=== PATIENT | male | born 1995 | race Caucasian/White ===

== ENCOUNTER 2016-12-28 13:42 | Emergency (ER) | payer OTHER ==
[~2016-12-28] VITALS: Ht 185.4 cm; Wt 77.8 kg
[2016-12-28 13:44] VITALS: TEMP 36.4; Ht 185.4 cm; Wt 77.8 kg
[2016-12-28 14:17] LABS: BASO % 0.2 %; BASO ABS # 0.02 K/uL (0-0.2); COMPLETE YES; EOS % 3.5 %; HEMATOCRIT 51.3 % (42-52); IG% 0.2 %; LYMPH % 20.9 %; LYMPH ABS # 1.98 K/uL (1.2-3.4); MEAN CELL VOLUME 88.6 fL (80-100); MEAN CORPUSCULAR HEMOGLOBIN 30.2 pg (25-34); MEAN CORPUSCULAR HGB CONC 34.1 g/dl (32-36); MEAN PLATELET VOLUME 9.9 fL (7.4-10.4); MONO % 8.8 %; NEUT % 66.4 %; PLATELET COUNT 336 K/uL (130-400); RED BLOOD COUNT 5.79 M/uL (4.7-6.1); WHITE BLOOD COUNT 9.48 K/uL (4.8-10.8)
[2016-12-28] MEDS ORDERED: SODIUM CHLORIDE 0.9% 500ML 500 ML IV STA (14:34)
[2016-12-28] MEDS ORDERED: SODIUM CHLORIDE 0.9% 1000ML 1,000 ML IV STA (14:34)
[2016-12-28] MEDS ORDERED: ONDANSETRON INJ 2 MG/ML 2 ML VIAL IV STA (14:34)
[2016-12-28 14:37] LABS: BUN/CREATININE RATIO 11.8 (10-20); CALCIUM 10.1 mg/dl (8.5-10.1); CREATININE 1.1 mg/dl (0.60-1.40)
--- NOTE | 2016-12-28 14:37 | EMERGENCY ROOM VISIT NOTE ---
History Report prepared by Mervin: Justo Arthur Under the Supervision of: Dr. Agustin Koehler M.D. First contact with patient: 14:26 Chief Complaint: ABDOMINAL PAIN Stated Complaint: RIGHT SIDE ABDOMINAL PAIN Nursing Triage Summary: Abdominal pain x1 day, dry heaves. More right sided abd pain History of Present Illness The patient is a 21 year old male who presents to the Emergency Room with complaints of waxing and waning abdominal pain that started around 1999 last night. He says that the pain is not localized in one area. The patient states that he only ate breakfast yesterday, and was hungry with abdominal pain last night, so he got something to eat. However, after he ate, the pain became much worse. He was about to come here last night, but the pain eased off a bit around midnight. The patient also notes that he was dry heaving with chills last night. The patient woke up this morning around 0700 with worsened pain. He says that he took milk of magnesia around 1100 and then had a bowel movement. His bowels were "just water" but with no blood. The bowel movement did not change the pain. He says the pain has gone between a 4 out of 10 to a 9 out of 10. The patient states that the pain has eased off a bit in the past 10 minutes. He says that walking may worsen the pain a bit. He denies any back pain , nausea, fevers. or urinary symptoms. He did not eat anything today. The patient says that he does not take any daily medications and he does not have any chronic medical problems. Source of History: patient, spouse/significant other Onset: Around 1999 last night Position: abdomen Symptom Intensity: ranges from 4 to a 9 out of 10 Timing: waxes/wanes Modifying Factors (Worsening): other (walking) Associated Symptoms: + chills, No back pain, No fevers, No hematochezia, No nausea, No urinary symptoms Note: Associated symptoms: Dry heaving last night. Review of Systems See HPI for pertinent positives & negatives. A total of 10 systems reviewed and were otherwise negative. Past Medical & Surgical Medical Problems: (1) No chronic problems Family History No pertinent family history Social History Smoking Status: Never Smoker Marital Status: single Occupation Status: student Current/Historical Medications No Active Prescriptions or Reported Meds Allergies Coded Allergies: No Known Allergies (Unverified , 5/6/17) Physical Exam Vital Signs Date Time Temp Pulse Resp B/P Pulse Ox O2 Delivery O2 Flow Rate FiO2 12/28/16 18:29 69 16 133/84 100 12/28/16 15:45 51 16 133/82 100 12/28/16 13:44 36.4 56 20 144/89 99 Room Air Physical Exam GENERAL: Patient is in no acute distress. HEENT: No acute trauma, normocephalic atraumatic, mucous membranes moist, no nasal congestion, no scleral icterus. NECK: No stridor, no adenopathy, no meningismus, trachea is midline. LUNGS: Clear to auscultation bilaterally, no wheeze, no rhonchi, breath sounds equal. HEART: Without murmurs gallops or rubs, regular rate and rhythm. ABDOMEN: Soft, primarily tender in right lower quadrant, bowel sounds positive, no hernias, no peritonitis. EXTREMITIES: No cyanosis or edema, full range of motion of all the joints without pain or difficulty, no signs for acute trauma. NEUROLOGIC: Oriented x 3, no acute motor or sensory deficits, no focal weakness. SKIN: No rash, no jaundice, no diaphoresis. Medical Decision & Procedures ER Provider Diagnostic Interpretation: Radiology results and stated below per my review and radiologist interpretation: ABDOMEN AND PELVIS CT WITH IV AND ORAL CONTRAST CT DOSE: 295.26 mGy.cm HISTORY: Pain ABDOMINAL PAIN/GI TECHNIQUE: Multiaxial CT images of the abdomen and pelvis were performed following the use of intravenous and oral contrast. COMPARISON STUDY: None. FINDINGS: The lung bases are clear. The liver, spleen, gallbladder, pancreas, kidneys, and adrenal glands are within normal limits. No bowel wall thickening or obstruction. The pelvic organs are unremarkable. No suspicious lytic or blastic osseous lesions. The appendix is normal. Bladder is midline. IMPRESSION: No significant abnormality identified within the abdomen or pelvis. Electronically signed by: Bao Morales M.D. 12/28/2016 5:40 PM Dictated Date/Time: 12/28/2016 5:38 PM ABDOMINAL ULTRASOUND, RIGHT LOWER QUADRANT HISTORY: ABDOMINAL PAIN. COMPARISON: None. FINDINGS: Nonvisualization of the appendix IMPRESSION: Nonvisualization of the appendix Electronically signed by: Bao Morales M.D. 12/28/2016 4:23 PM Dictated Date/Time: 12/28/2016 4:22 PM Laboratory Results 12/28/16 14:00 Red Blood Count 5.79, Mean Corpuscular Volume 88.6, Mean Corpuscular Hemoglobin 30.2, Mean Corpuscular Hemoglobin Concent 34.1, Mean Platelet Volume 9.9, Neutrophils (%) (Auto) 66.4, Lymphocytes (%) (Auto) 20.9, Monocytes (%) (Auto) 8.8, Eosinophils (%) (Auto) 3.5, Basophils (%) (Auto) 0.2, Neutrophils # (Auto) 6.30, Lymphocytes # (Auto) 1.98, Monocytes # (Auto) 0.83, Eosinophils # (Auto) 0.33, Basophils # (Auto) 0.02 12/28/16 14:00 Test 12/28/16 14:00 White Blood Count 9.48 K/uL (4.8-10.8) Red Blood Count 5.79 M/uL (4.7-6.1) Hemoglobin 17.5 g/dL (14.0-18.0) Hematocrit 51.3 % (42-52) Mean Corpuscular Volume 88.6 fL (80-100) Mean Corpuscular Hemoglobin 30.2 pg (25-34) Mean Corpuscular Hemoglobin Concent 34.1 g/dl (32-36) Platelet Count 336 K/uL (130-400) Mean Platelet Volume 9.9 fL (7.4-10.4) Neutrophils (%) (Auto) 66.4 % Lymphocytes (%) (Auto) 20.9 % Monocytes (%) (Auto) 8.8 % Eosinophils (%) (Auto) 3.5 % Basophils (%) (Auto) 0.2 % Neutrophils # (Auto) 6.30 K/uL (1.4-6.5) Lymphocytes # (Auto) 1.98 K/uL (1.2-3.4) Monocytes # (Auto) 0.83 K/uL (0.11-0.59) Eosinophils # (Auto) 0.33 K/uL (0-0.5) Basophils # (Auto) 0.02 K/uL (0-0.2) RDW Standard Deviation 40.0 fL (36.4-46.3) RDW Coefficient of Variation 12.5 % (11.5-14.5) Immature Granulocyte % (Auto) 0.2 % Immature Granulocyte # (Auto) 0.02 K/uL (0.00-0.02) Urine Color YELLOW Urine Appearance CLEAR (CLEAR) Urine pH >= 9.0 (4.5-7.5) Urine Specific [place] 1.019 (1.000-1.030) Urine Protein NEG (NEG) Urine Glucose (UA) NEG (NEG) Urine Ketones NEG (NEG) Urine Occult Blood NEG (NEG) Urine Nitrite NEG (NEG) Urine Bilirubin NEG (NEG) Urine Urobilinogen NEG (NEG) Urine Leukocyte Esterase NEG (NEG) Anion Gap 8.0 mmol/L (3-11) Est Creatinine Clear Calc Drug Dose 116.9 ml/min Estimated GFR () 110.6 Estimated GFR (Non- 95.5 BUN/Creatinine Ratio 11.8 (10-20) Calcium Level 10.1 mg/dl (8.5-10.1) Total Bilirubin 1.1 mg/dl (0.2-1) Aspartate Amino Transf (AST/SGOT) 21 U/L (15-37) Alanine Aminotransferase (ALT/SGPT) 33 U/L (12-78) Alkaline Phosphatase 108 U/L (45-117) Total Protein 8.0 gm/dl (6.4-8.2) Albumin 4.7 gm/dl (3.4-5.0) Globulin 3.3 gm/dl (2.5-4.0) Albumin/Globulin Ratio 1.4 (0.9-2) Lipase 80 U/L (73-393) Laboratory results reviewed by me. Medications Administered Medications (Trade) Dose Ordered Sig/Guero Route Start Time Stop Time Status Last Admin Dose Admin Sodium Chloride 500 ml @ 999 mls/hr Q31M STAT IV 12/28/16 14:34 12/28/16 15:04 DC 12/28/16 14:40 999 MLS/HR Sodium Chloride (Nss 1000ml) 1,000 ml @ 200 mls/hr Q5H STAT IV 12/28/16 14:34 12/28/16 18:49 DC 12/28/16 14:40 200 MLS/HR Ondansetron HCl (Zofran Inj) 4 mg NOW STAT IV 12/28/16 14:34 12/28/16 14:36 DC 12/28/16 14:46 4 MG ED Course 1429: The patient was evaluated in room A2. A complete history and physical exam was performed. 1434: Ordered Zofran Inj 4 mg IV, NSS 1000 ml @ 200 mls/hr IV, NSS 500 ml @ 999 mls/hr IV. 1655: I reevaluated and updated the patient. 175: Reevaluated the patient. Discussed results and discharge instructions: He verbalized understanding and agreement. The patient is ready for discharge. Medical Decision Differential diagnosis includes but is not limited to appendicitis, mesenteric adenitis, UTI, hernia, pancreatitis, electrolyte imbalance, biliary colic. There was no leukocytosis or concerning anemia. No significant electrolyte abnormality, kidney failure, hepatitis or pancreatitis. Urinalysis does not show hematuria or evidence for infection. Abdominal ultrasound could not visualize the appendix. Abdominal and pelvis CT shows a normal appendix, no acute surgical process by CT scan. On exam, there was no true peritonitis. The patient was not febrile or toxic. The patient did not require anything for pain. He did receive IV saline and IV Zofran, he looks well. The cause for the pain is unclear. I talked about the possibility of missed appendicitis with him. He is being discharged to return if worsening or not improving, rest, hydration, a bland diet were suggested. Impression Primary Impression: RLQ abdominal pain Scribe Attestation The scribe's documentation has been prepared under my direction and personally reviewed by me in its entirety. I confirm that the note above accurately reflects all work, treatment, procedures, and medical decision making performed by me. Departure Information Dispostion Home / Self-Care Prescriptions No Active Prescriptions or Reported Meds Referrals [facility] Forms HOME CARE DOCUMENTATION FORM, IMPORTANT VISIT INFORMATION Patient Instructions My [facility] Additional Instructions slowly advance the diet crackers, soup, toast, gatorade rest motrin and or tylenol for pain return for fever, worsening pain or symptoms or lack of improvement early appendicitis is still possible as we discussed testing today was all ok
[2016-12-28] MEDS ORDERED: OPTIRAY 320 IV PRN (14:45)
[2016-12-28 14:47] LABS: ALB/GLOB RATIO 1.4 (0.9-2); POTASSIUM 3.8 mmol/L (3.5-5.1)
[2016-12-28 14:54] LABS: URINE APPEARANCE CLEAR (CLEAR); URINE BILIRUBIN NEG (NEG); URINE COLOR YELLOW; URINE NITRITE NEG (NEG); URINE PH >= 9.0 (4.5-7.5); URINE SPECIFIC GRAVITY 1.019 (1.000-1.030); UROBILINOGEN NEG (NEG); ZZUR CULT IF INDIC CLEAN CATCH NO
[2016-12-28 15:00] LABS: MANUAL MICROSCOPIC REQUIRED? NO; REVIEW REQ? NO
--- NOTE | 2016-12-28 16:24 | DIAGNOSTIC IMAGING REPORT ---
ABDOMINAL ULTRASOUND, RIGHT LOWER QUADRANT HISTORY: ABDOMINAL PAIN. COMPARISON: None. FINDINGS: Nonvisualization of the appendix IMPRESSION: Nonvisualization of the appendix Electronically signed by: Bao Morales M.D. 12/28/2016 4:23 PM Dictated Date/Time: 12/28/2016 4:22 PM
--- NOTE | 2016-12-28 17:41 | DIAGNOSTIC IMAGING REPORT ---
ABDOMEN AND PELVIS CT WITH IV AND ORAL CONTRAST CT DOSE: 295.26 mGy.cm HISTORY: Pain ABDOMINAL PAIN/GI TECHNIQUE: Multiaxial CT images of the abdomen and pelvis were performed following the use of intravenous and oral contrast. COMPARISON STUDY: None. FINDINGS: The lung bases are clear. The liver, spleen, gallbladder, pancreas, kidneys, and adrenal glands are within normal limits. No bowel wall thickening or obstruction. The pelvic organs are unremarkable. No suspicious lytic or blastic osseous lesions. The appendix is normal. Bladder is midline. IMPRESSION: No significant abnormality identified within the abdomen or pelvis. Electronically signed by: Bao Morales M.D. 12/28/2016 5:40 PM Dictated Date/Time: 12/28/2016 5:38 PM
[2016-12-28 18:29] VITALS: BP 133/84; PULSE 69; O2SAT 100
== END 2016-12-28 18:29 | disposition home or self-care (01) ==
LOC: C.EDB 13:44 → C.EDA 18:29
DX: R10.31 Right lower quadrant pain (principal)